=== PATIENT | male | born 1990 | race African-American/Black ===

== ENCOUNTER 2020-07-05 09:35 | Emergency (ER) | payer OTHER ==
[2020-07-05 09:49] VITALS: BP 121/61; PULSE 78; TEMP 97.7; BMI 34.7
[2020-07-05] MEDS ORDERED: AZITHROMYCIN 500 MG TABLET PO ONE (10:29)
--- NOTE | 2020-07-05 10:36 | PDOC ---
History of Present Illness - General Chief Complaint: Pain Stated Complaint: LT LEG PAIN Time Seen by Provider: 07/05/20 10:17 History Source: Patient Exam Limitations: No Limitations - History of Present Illness Initial Comments: 07/05/20 10:34 Patient is a 29-year-old male with no past medical history who presents to the ED with complaint of penile drainage and discomfort while urinating for the last 3 to 4 days. He states he is visiting from [place] and has been here for the last 1 month. He met someone new and states that is when the symptoms started. He denies any testicular pain. He denies any sores on his penis. The patient denies any back pain. He denies any allergies to medications. He denies any fevers or chills. He blood in his urine. Past History - Medical History Allergies/Adverse Reactions: Allergies Allergy/AdvReac Type Severity Reaction Status Date / Time No Known Allergies Allergy Verified 07/05/20 09:47 COPD: No - Immunization History Immunization Up to Date: Yes - Psycho-Social/Smoking History Smoking History: Current some day smoker Number of Cigarettes Smoked Daily: 2 Information on smoking cessation initiated: No - Substance Abuse Hx (Audit-C & DAST Scrn) How often the patient has a drink containing alcohol: Monthly or less Score: In Men: 4 or > Positive; In Women: 3 or > Positive: 1 Screen Result (Pos requires Nsg. Audit-10AR): Negative In the last yr the pt used illegal drug/Rx for NonMed reason: No Score: Yes response is considered Positive: 0 Screen Result (Positive result requires Nsg. DAST-10): Negative Review of Systems - Review of Systems Comments:: 07/05/20 10:34 - Review of Systems Able to Perform ROS?: Yes Constitutional: No: Fever, Chills, Loss of Appetite, Night Sweats, Weakness HEENTM: No: Eye Pain, Vision changes, Ear Pain, Throat Pain, Throat Swelling, Mouth Pain, Difficulty Swallowing Respiratory: No: Cough, Shortness of Breath, Wheezing, Sputum Production Cardiac (ROS): No: Chest Pain, Chest Tightness, Palpitations, Irregular Heart Beat, Edema ABD/GI: No: Nausea, Vomiting, Abdominal Pain, Diarrhea : No Dysuria, No Hematuria, No Frequency, No Urgency, positive: Penile Discharge/Pain Musculoskeletal: No: Muscle Pain, Back Pain, Joint Pain, Muscle Weakness, Neck Pain Integumentary: No: Lesions, Rash Neurological: No: Headache, Numbness, Tingling, Weakness, Speech Difficulties *Physical Exam - Vital Signs Last Vital Signs Temp Pulse Resp BP Pulse Ox 97.7 F 78 18 121/61 98 07/05/20 09:47 07/05/20 09:47 07/05/20 09:47 07/05/20 09:47 07/05/20 09:47 - Physical Exam 07/05/20 10:35 - Physical Exam General Appearance: Nourished, Appropriately Dressed, No Distress HEENT: EOMI, Normal Voice, Hearing Grossly Normal Neck: Supple, No Lymphadenopathy (R), No Lymphadenopathy (L), No Rigidity, No Decreased range of motion Respiratory/Chest: Lungs Clear, Normal Breath Sounds. No Respiratory Distress, No Accessory Muscle Use Cardiovascular: Regular Rhythm, Regular Rate, S1, S2 Gastrointestinal/Abdominal: Normal Bowel Sounds, Soft. Non-tender, No Guarding, No Rebound, No Rigidity : Patient refused a exam at this time Musculoskeletal: Normal Inspection. No Decreased Range of Motion Extremity: Normal Capillary Refill, Normal Inspection Integumentary: Normal Color, Dry. No Rash Neurologic: art specialist II-XII NML intact, Fully Oriented, Alert, Normal Mood/Affect, Normal Response ED Treatment Course - ADDITIONAL ORDERS Additional order review: 07/05/20 11:16 Laboratory Tests 07/05/20 07/05/20 10:22 10:22 Urine Color Yellow Urine Appearance Clear Urine pH 6.5 Ur Specific [place] 1.033 Urine Protein Negative Urine Glucose (UA) Negative Urine Ketones Trace H Urine Blood Negative Urine Nitrite Negative Urine Bilirubin Negative Urine Urobilinogen 2.0 Ur Leukocyte Esterase 1+ H Urine WBC (Auto) 41 Urine RBC (Auto) 9 Urine Casts (Auto) 9 U Epithel Cells (Auto) 24 Urine Bacteria (Auto) 85 C. trachomatis ([facility]LEY) Pending N. gonorrhoeae ([facility]LEY) Pending Medical Decision Making - Medical Decision Making 07/05/20 10:35 Assessment: Patient is a 29-year-old male with penile discharge and discomfort with urination for the last 3 to 4 days. Plan: -GC chlamydia test ordered -UA and urine culture ordered -Ceftriaxone and azithromycin given in the ED -Will reassess 07/05/20 11:16 Patient has 85 white cells in his urine which is likely secondary to GC or chlamydia infection. Will wait for urine culture results for possible UTI treatment. The patient has been made aware that we will call him if the results are positive. He has been made aware that he has been treated for GC and chlamydia in the emergency department today. He should refrain from sexual intercourse and have his partners tested and treated. He understands and agrees with this treatment plan and he is stable for discharge. Discharge - Discharge Information Problems reviewed: Yes Clinical Impression/Diagnosis: Drainage from penis Condition: Stable Disposition: HOME - Follow up/Referral Referrals: [facility] [place] [Provider Group] - Patient Discharge Instructions Patient Printed Discharge Instructions: Facts About Sexually Transmitted Infections Additional Instructions: Avoid any sexual intercourse for the next 1 to 2 weeks. Be sure to have your partners tested and treated for STDs as well. Get plenty rest and drink plenty of fluids. We will call you once your results are available but only if they are positive. Follow-up with your primary care doctor for further evaluation a nd treatment. If you do not have a primary care doctor 1 has been referred to you. - Post Discharge Activity Work/Back to School Note: Back to Work
[2020-07-05] MEDS ORDERED: AZITHROMYCIN 250 MG TABLET ONE (10:43)
[2020-07-05] MEDS ORDERED: cefTRIAXone SODIUM 1 GM VIAL ONE (10:43)
[2020-07-05] MEDS ORDERED: LIDOCAINE HCL 2% (20ML MULTI-DOSE VIAL) ONE (10:44)
[2020-07-05 11:03] LABS: EPI CELLS 24 /uL (0-25.1); HYALINE CASTS 9 /uL (0-3.1); PH,URINE 6.5 (5.0-8.0); URINE APPEARANCE CLEAR; URINE BACTERIA 85 /uL (0-1359); URINE BILIRUBIN NEGATIVE (NEGATIVE); URINE COLOR YELLOW; URINE GLUCOSE (UA) NEGATIVE (NEGATIVE); URINE KETONE TRACE (NEGATIVE); URINE LEUK ESTERASE 1+ (NEGATIVE); URINE NITRITE NEGATIVE (NEGATIVE); URINE PROTEIN NEGATIVE (NEGATIVE); URINE RBC 9 /uL (0-23.9); URINE WBC 41 /uL (0-25.8)
== END 2020-07-05 11:22 | disposition home or self-care (01) ==
LOC: JERFT 09:35
DX: R36.9 Urethral discharge, unspecified (principal)
CPT/HCPCS: 36415; 81003; 87086; 87491; 87591; 99284-25

== ENCOUNTER 2021-07-09 05:43 | Emergency (ER) | payer SELFPAY ==
[2021-07-09 05:57] VITALS: BP 145/79; PULSE 62; TEMP 98.4; BMI 38.7
[2021-07-09] MEDS ORDERED: AZITHROMYCIN 500 MG TABLET PO ONE (07:49)
[2021-07-09] MEDS ORDERED: AZITHROMYCIN 250 MG TABLET ONE (07:58)
[2021-07-09 08:26] LABS: EPI CELLS 1 /uL (0-25.1); HYALINE CASTS 16 /uL (0-3.1); PH,URINE 6.5 (5.0-8.0); URINE APPEARANCE CLEAR; URINE BACTERIA 45 /uL (0-1359); URINE BILIRUBIN NEGATIVE (NEGATIVE); URINE COLOR YELLOW; URINE GLUCOSE (UA) NEGATIVE (NEGATIVE); URINE KETONE NEGATIVE (NEGATIVE); URINE LEUK ESTERASE 2+ (NEGATIVE); URINE NITRITE NEGATIVE (NEGATIVE); URINE PROTEIN NEGATIVE (NEGATIVE); URINE RBC 12 /uL (0-23.9); URINE WBC 907 /uL (0-25.8)
== END 2021-07-09 08:15 | disposition home or self-care (01) ==
LOC: JER 05:43
PROC: 3E023GC Introduction of Other Therapeutic Substance into Muscle, Percutaneous Approach (ICD-10-PCS; principal; 2021-07-09)
DX: R30.0 Dysuria (principal); R36.0 Urethral discharge without blood
CPT/HCPCS: 36415; 81003; 87086; 87491; 87591; 99284-25

== ENCOUNTER 2021-09-18 16:07 | Emergency (ER) | payer OTHER ==
[2021-09-18 16:23] VITALS: BP 126/73; PULSE 66; TEMP 98.1; BMI 33.9
[2021-09-18] MEDS ORDERED: METHOCARBAMOL 500 MG TABLET PO ONE (17:15)
[2021-09-18] MEDS ORDERED: METHOCARBAMOL 500 MG TABLET ONE (19:34)
== END 2021-09-18 17:52 | disposition home or self-care (01) ==
LOC: JERFT 16:07
DX: M54.2 Cervicalgia (principal); M54.50 Low back pain, unspecified; V89.2XXA Person injured in unspecified motor-vehicle accident, traffic, initial encounter; Y92.9 Unspecified place or not applicable
CPT/HCPCS: 99283-25